=== PATIENT | female | born 1990 | race Caucasian/White ===

== ENCOUNTER 2016-10-25 18:28 | Emergency (ER) | payer OTHER ==
[2016-10-25 19:20] VITALS: BP 138/78
--- NOTE | 2016-10-25 19:57 | UC ---
Skin Complaint HPI - HPI Summary HPI Summary: "My legs are covered in unexplained, painful bruises." Ecchymosis and pain in legs worsening since last night. No known injury or similar episodes. Rash on neck and head and was given cephalexin and predispose one to two days ago; previous visit she was told it was because she was and then told it was shingles. Patient is homemaker. PCP Adrián ([place], [place]). Dx with dermatitis -- given steroid cream 4 mo ago and not better. Used mom's eczema cream and not improved. Took valtrex and not better a month ago [ End ] - History of Current Complaint Chief Complaint: UCLowerExtremity Time Seen by Provider: 10/25/16 19:45 Stated Complaint: TENDERNESS AND BRUISES ON LEGS Hx Obtained From: Patient Hx Last Menstrual Period: s/p LEEP and ablation ?: No Onset/Duration: Sudden Onset Timing: Constant Onset Severity: Mild Current Severity: Moderate Alleviating: Nothing Associated Signs & Symptoms: Positive: Negative Similar Episode/Dx as: this has been occurring on neck for 4 mo . the bruising in the legs for 2 days. - Allergy/Home Medications Allergies/Adverse Reactions: Allergies Allergy/AdvReac Type Severity Reaction Status Date / Time No Known Allergies Allergy Verified 10/25/16 19:19 Home Medications: Home Medications Cephalexin CAP* [Keflex CAP*] 1,000 mg PO BID 10/25/16 [History Confirmed ] predniSONE TAB* [Deltasone TAB*] 40 mg PO DAILY 10/25/16 [History Confirmed 03/06] Review of Systems Constitutional: Negative Skin: Rash, Bruising Eyes: Negative ENT: Negative Respiratory: Negative Cardiovascular: Negative Gastrointestinal: Negative Genitourinary: Negative Motor: Negative Neurovascular: Negative Musculoskeletal: Negative Neurological: Negative Psychological: Negative All Other Systems Reviewed And Are Negative: Yes PMH/Surg Hx/FS Hx/Imm Hx - Additional Past Medical History Additional PMH: Mother and her mother with psoriasis and eczema Previously Healthy: Yes Endocrine History Of: Denies: Diabetes Cardiovascular History Of: Denies: Hypertension, Pacemaker/ICD, Congestive Heart Failure, Atrial Fibrillation, Deep Vein Thrombosis, Bleeding Disorders GI/ History Of: Denies: Renal Disease - Surgical History Surgical History: Yes Surgery Procedure, Year, and Place: tubal lig, left oopherectomy and salpingectomy, LEEP,. 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 Lives: With Family Alcohol Use: Rare Substance Use Type: None Smoking Status (MU): Heavy Every Day Tobacco Smoker Type: Cigarettes Amount Used/How Often: 1/2 PPD Length of Time of Smoking/Using Tobacco: since age 14 Have You Smoked in the Last Year: Yes Household Exposure Type: Cigarettes - Immunization History Most Recent Influenza Vaccination: Not the Season Physical Exam Triage Information Reviewed: Yes Appearance: Well-Appearing, No Pain Distress, Well-Nourished Vital Signs: Initial Vital Signs Temp 98.5 F 10/25/16 19:13 Pulse 73 10/25/16 19:13 Resp 16 10/25/16 19:13 BP 138/78 10/25/16 19:13 Pulse Ox 100 10/25/16 19:13 Vital Signs Reviewed: Yes Eye Exam: Normal ENT Exam: Normal Dental Exam: Normal Neck exam: Normal Neck: Positive: 1 Respiratory Exam: Normal Cardiovascular Exam: Normal Abdominal Exam: Normal Musculoskeletal Exam: Normal Neurological Exam: Normal Psychological Exam: Normal Skin: Positive: rashes - maculopapular rash posterior neck diffusely, crosses midline, affects majority of the right ear, Other - mild ecchymosis right lateral left thigh > left thigh . a few small circular 3x3 mm light purple spots on the right inner thigh. nothing on the calf. neg homans. no other bruising on the trunk.back.arms or legs. no petechiae. no purpura. Course/Dx - Course Course Of Treatment: Patient states she has taken up to 20 ibuprofen a day in the past few days weeks. I told her it could cause bruising , could also lead to kidney failure , interna, bleeding, GI Ulcer, . She appears comfortable at this time and in no acute distress which could require labs today. SHe states she will call her PCP to be seen this week for f/u and labs. Also aware she may need biopsy of her skin where the neck changes have occurred and given multiple derm options if PCP can not perform this. Some dried yellow disharge on the nape of neck. SHe states ? bloody pus came from the area last week but not present now. Start bactroban to cover staph. She is aware to try to see same office instead of multiple UC/ED/physicians as her care if fractured at this time. No concern for ITP / DIC . - Diagnoses Provider Diagnoses: Contact dermatitis with secondary bacterial infection on neck and bilateral thigh ecchymosis Discharge - Discharge Plan Condition: Good Disposition: HOME Prescriptions: Mupirocin 2% OINT* [Bactroban 2 % Oint*] 1 applic TOPICAL BID #1 tube Patient Education Materials: Psoriasis (ED), Ecchymosis (ED) Referrals: Fredy Sampson MD [Primary Care Provider] - 3 Days Salas CUTLER,Cristi Cui [Medical Doctor] - (Derm Referral in [place]) Additional Instructions: As we discussed you may have psoriasis / eczema with concurrent bacterial infection. Continue with steroid, antibiotic and start bactroban ointment. Please stop taking any ibuprofen or motrin as it can cause kidney damage, easy bruising and bleeding.Please follow up with your PCP for labs to check your kidney and liver function as well as your blood count. We are not a common place to have those labs checked. Also if you can not get an appt for a local tank tester please call Dr Dye Address: [address] [place] [address]
== END 2016-10-25 20:25 | disposition home or self-care (01) ==
LOC: UCCORT 18:28
DX: L25.9 Unspecified contact dermatitis, unspecified cause (principal); R23.3 Spontaneous ecchymoses; F17.210 Nicotine dependence, cigarettes, uncomplicated
CPT/HCPCS: 99212; G0463

== ENCOUNTER 2017-11-11 11:53 | Emergency (ER) | payer OTHER ==
[2017-11-11 13:24] VITALS: BP 109/66
--- NOTE | 2017-11-11 13:38 | UC ---
Shoulder Pain HPI - HPI Summary HPI Summary: 27 year old female with shoulder pain . c/o L shoulder pain and decreased ROM that started Monday after picking up grandfather on Monday after a fall. It was a night and did not feel pain until the next day. no trauma to the shoulder. [ End ] - History of Current Complaint Chief Complaint: UCUpperExtremity Stated Complaint: LEFT SHOULDER INJURY Time Seen by Provider: 11/11/17 12:54 Hx Obtained From: Patient Hx Last Menstrual Period: 11/08/17 Onset/Duration: Sudden Onset Timing: Constant Pain Intensity: 6 - Allergies/Home Medications Allergies/Adverse Reactions: Allergies Allergy/AdvReac Type Severity Reaction Status Date / Time No Known Allergies Allergy Verified 11/11/17 13:18 Home Medications: Home Medications Ibuprofen TAB* [Advil TAB*] 600 mg PO Q5H PRN 11/11/17 [History Confirmed ] PMH/Surg Hx/FS Hx/Imm Hx Previously Healthy: Yes - Surgical History Surgical History: Yes Surgery Procedure, Year, and Place: tubal lig, left oopherectomy and salpingectomy, LEEP,. right fallopian tube removed along with uterine ablation 12/25/15 - Family History Known Family History: Positive: Unknown, Other - postitive FMH of neck pain - Social History Occupation: Employed Full-time Lives: With Family Alcohol Use: Rare Substance Use Type: None Smoking Status (MU): Heavy Every Day Tobacco Smoker Type: Cigarettes Amount Used/How Often: 1/2 PPD Length of Time of Smoking/Using Tobacco: since age 14 Have You Smoked in the Last Year: Yes Household Exposure Type: Cigarettes - Immunization History Most Recent Influenza Vaccination: Not the 2016/2016 Season Review of Systems Musculoskeletal: Arthralgia, Decreased ROM Is Patient Immunocompromised?: No All Other Systems Reviewed And Are Negative: Yes Physical Exam Triage Information Reviewed: Yes Appearance: Well-Appearing, Well-Nourished, Pain Distress - mild Vital Signs: Initial Vital Signs Temp 98.7 F 11/11/17 13:19 Pulse 65 11/11/17 13:19 Resp 18 11/11/17 13:19 BP 109/66 11/11/17 13:19 Pulse Ox 99 11/11/17 13:19 Eyes: Positive: Conjunctiva Clear ENT: Positive: Hearing grossly normal Respiratory: Positive: No respiratory distress Musculoskeletal: Positive: Strength Limited @, ROM Limited @ - in all directions left shoulder.AROM forward flexion 60 degrees with PROM of 90. (+) Impingement. (+) neers (+) Neurological Exam: Normal Psychological Exam: Normal Shoulder Course/Dx - Course Course Of Treatment: likely rotator cuff injury. she does not think dislocation and deferred xray to ortho. normal clavicle to palption. appears to be not dislocated. f/u ortho - Differential Dx/Diagnosis Differential Diagnosis/HQI/PQRI: Rotator Cuff Injury Provider Diagnoses: Rotator cuff injury Discharge - Sign-Out/Discharge Documenting (check all that apply): Discharge - Discharge Plan Condition: Good Disposition: HOME Prescriptions: Cyclobenzaprine TAB* [Flexeril 10 MG TAB*] 10 mg PO SEE INSTRUCTIONS #10 tab Patient Education Materials: Rotator Cuff Injury (ED) Referrals: Fredy Samspon MD [Primary Care Provider] - 4 Days Michael Sweeney MD [Medical Doctor] - 2 Days (Orthopedic referral ) - Billing Disposition and Condition Condition: GOOD Disposition: HOME
== END 2017-11-11 13:52 | disposition home or self-care (01) ==
LOC: UCCORT 11:53
DX: S46.002A Unspecified injury of muscle(s) and tendon(s) of the rotator cuff of left shoulder, initial encounter (principal); X50.0XXA Overexertion from strenuous movement or load, initial encounter; Y93.89 Activity, other specified; Y92.9 Unspecified place or not applicable; Z87.891 Personal history of nicotine dependence
CPT/HCPCS: 99212; G0463

== ENCOUNTER 2018-09-11 15:54 | Emergency (ER) | payer OTHER ==
[2018-09-11 16:19] VITALS: BP 114/64
[2018-09-11] MEDS ORDERED: Naproxen TAB* 250 MG PO ONE (16:28)
--- NOTE | 2018-09-11 16:38 | UC ---
Upper Extremity HPI - HPI Summary HPI Summary: 28-year-old female presents with left shoulder pain. States she slipped on some icy stairs approximately 2 days ago and her left shoulder became caught between the rungs of the railing wrenching her shoulder. Complains of constant aching pain that significantly worsens with any movement of her shoulder. She' s been taking ibuprofen and icing the shoulder with minimal relief. States did not hit head or loose consciousness and denies any other injury. Denies numbness or tingling distally. - History of Current Complaint Chief Complaint: UCUpperExtremity Stated Complaint: LEFT SHOULDER COMPLAINT Time Seen by Provider: 09/11/18 16:19 Hx Obtained From: Patient Hx Last Menstrual Period: 11/08/17 Pain Intensity: 7 - Allergies/Home Medications Allergies/Adverse Reactions: Allergies Allergy/AdvReac Type Severity Reaction Status Date / Time No Known Allergies Allergy Verified 09/11/18 16:10 PMH/Surg Hx/FS Hx/Imm Hx Previously Healthy: Yes - Denies significant PMH - Surgical History Surgical History: Yes Surgery Procedure, Year, and Place: tubal lig, left oopherectomy and salpingectomy, LEEP,. right fallopian tube removed along with uterine ablation 12/25/15, total hysterectomy (2018) - Family History Known Family History: Positive: Non-Contributory - Social History Occupation: Employed Full-time Lives: With Family Alcohol Use: Rare Substance Use Type: None Smoking Status (MU): Heavy Every Day Tobacco Smoker Type: Cigarettes Amount Used/How Often: 1/2 PPD Length of Time of Smoking/Using Tobacco: since age 14 Have You Smoked in the Last Year: Yes Household Exposure Type: Cigarettes - Immunization History Most Recent Influenza Vaccination: Not the 2016/2016 Season Review of Systems All Other Systems Reviewed And Are Negative: Yes Constitutional: Negative: Fever, Chills Skin: Negative: Rash, Bruising Respiratory: Positive: Negative Cardiovascular: Positive: Negative Gastrointestinal: Positive: Negative Genitourinary: Positive: Negative Motor: Negative: Weakness Neurovascular: Negative: Decreased Sensation Musculoskeletal: Positive: Other: - See HPI Neurological: Positive: Negative Is Patient Immunocompromised?: No Physical Exam - Summary Physical Exam Summary: GENERAL APPEARANCE: Well developed, well nourished, alert and cooperative adult female who appears uncomfortable holding her left arm in position of comfort. HEAD: Atraumatic. normocephalic. NECK: Neck supple, non-tender. CARDIAC: Normal S1 and S2. No S3, S4 or murmurs. Rhythm is regular. There is no peripheral edema, cyanosis or pallor. Extremities are warm and well perfused. Capillary refill is less than 2 seconds. Peripheral pulses intact. LUNGS: Clear to auscultation without rales, rhonchi, wheezing or diminished breath sounds. ABDOMEN: Positive bowel sounds. Soft, nondistended, nontender. No guarding or rebound. No masses or hepatosplenomegally. MUSKULOSKELETAL: Tenderness to left shoulder over humeral head and scapula. No obvious deformity, ecchymosis, or lesions. ROM limited due to pain. Non-tender elbow with full ROM. BACK: Examination of the spine reveals normal gait and posture, no spinal deformity or tenderness, decreased range of motion or muscular spasm. NEUROLOGICAL: Strength and sensation symmetric and intact distally. SKIN: Skin normal color, texture and turgor with no lesions or eruptions. Triage Information Reviewed: Yes Vital Signs: Initial Vital Signs Temp 98.3 F 09/11/18 16:10 Pulse 85 09/11/18 16:10 Resp 16 09/11/18 16:10 BP 114/64 09/11/18 16:10 Pulse Ox 100 09/11/18 16:10 Vital Signs Reviewed: Yes Diagnostics - Radiology No standard instances Radiology Interpretation Completed By: Radiologist Summary of Radiographic Findings: Patient Name: KYARA DUARTE Medical Record# : [id number]. Ordering Physician: Ibrahima Watson NP Acct.#: [id number]. : 1990 Age: 28 Sex: F Location: [facility] - [place]. Exam Date: 1622 ADM Status: REG ER. Order Information: SHOULDER LEFT 2+ VWS. Accession Number: [id number]. CPT: 69891. INDICATION: 2 days of left shoulder pain after a slip and fall injury. COMPARISON: None. TECHNIQUE: 4 views of the left shoulder were obtained. FINDINGS: The adequately corticated bones are in normal alignment. Joint spaces appear. maintained. No fracture, dislocation or focal bony abnormality is seen. IMPRESSION: Normal radiograph of the left shoulder. Upper Extremity Course/Dx - Course Course Of Treatment: 28-year-old female presents with left shoulder pain. States she slipped on some icy stairs approximately 2 days ago and her left shoulder became caught between the rungs of the railing wrenching her shoulder. Complains of constant aching pain that significantly worsens with any movement of her shoulder. She's been taking ibuprofen and icing the shoulder with minimal relief. States did not hit head or loose consciousness and denies any other injury. Denies numbness or tingling distally. Afebrile. Vital signs stable. Exam reveals an adult female in mild discomfort holding her arm and a position of comfort. She has tenderness over the humeral head and scapula of her left shoulder. There is no obvious deformity, ecchymosis, or lesions noted. X-ray showed no acute fracture or dislocation. Recommend conservative treatment with NSAIDs and RICE for left shoulder sprain. She is to follow up with orthopedic surgery in 5-7 days if no improvement in symptoms. Anticipatory guidance and warning symptoms reviewed. Verbalizes understanding and agrees with POC. - Differential Dx/Diagnosis Differential Diagnosis/HQI/PQRI: Contusion, Fracture (Closed), Sprain, Other - dislocation Provider Diagnosis: Sprain of left shoulder Discharge - Sign-Out/Discharge Documenting (check all that apply): Patient Departure All imaging exams completed and their final reports reviewed: Yes - Discharge Plan Condition: Stable Disposition: HOME Prescriptions: Naproxen [Naproxen 500 mg tab] 500 mg PO BID #30 tablet Patient Education Materials: Shoulder Sprain (ED) Referrals: Fredy Sampson MD [Primary Care Provider] - Michael Sweeney MD [Medical Doctor] - 7 Days (Follow up in 5-7 days if no improvement in symptoms. Call for appointment.) Additional Instructions: [facility] showed no evidence of a fracture or dislocation. I suspect that you have a sprain of the shoulder from the injury. Rest the arm as much as possible. Avoid heavy lifting and strenuous activities. Apply ice to the affected area for 15-20 minutes at least 4 times a day to help with pain and swelling. Take naproxen 500 mg 1 tab every 12 hours with food for next 7 days then may take as needed. Follow up with Dr. Sweeney, orthopedic surgery, in 5-7 days if no improvement in symptoms. Call for appointment. Seek immediate medical attention for severe pain that is not managed with pain medication, you develop numbness or tingling in the arm, hands, or fingers, have chest pain, shortness of breath, or any worsening of symptoms. - Billing Disposition and Condition Condition: STABLE Disposition: Home - Attestation Statements Provider Attestation: Per institutional requirements, I have reviewed the chart, however, I was not consulted specifically or made aware of this patient by the midlevel provider. I did not personally evaluate, interact with , or disposition this patient.
== END 2018-09-11 17:53 | disposition home or self-care (01) ==
LOC: UCCORT 15:54
DX: S43.402A Unspecified sprain of left shoulder joint, initial encounter (principal); W23.0XXA Caught, crushed, jammed, or pinched between moving objects, initial encounter; Y92.9 Unspecified place or not applicable; F17.210 Nicotine dependence, cigarettes, uncomplicated
CPT/HCPCS: 99212; A9270-GY; G0463